=== PATIENT | male | born 1950 | race Caucasian/White ===

== ENCOUNTER → 2017-12-26 | Outpatient (CLI) | payer MEDICARE ==
[~2017-12-26] MED LIST: AMIT25TA PO; CEPH-376 PO; CYCL-259 PO; DIAZ10TA4 PO; DIAZ5TAB PO; ENOX30SY4 SQ; ESZO1TAB8 PO; GLUC15006 PO; HYDR-3237 PO; LACT1TAB3 PO; MULT-224 PO; MULT-516 PO; OXYC10TA72 PO; OXYC5TAB2 PO; SILD100T PO; STOOL SOFTENER PO; ZOLP10TA5 PO
[2017-12-26 08:56] LABS: BASOPHILS # (AUTO) 0.03 x10^3/uL (0-0.1); BASOPHILS % (AUTO) 1 % (0-1); EOSINOPHILS # (AUTO) 0.15 x10^3/uL (0-0.4); EOSINOPHILS % (AUTO) 3 % (1-7); LYMPHOCYTES % (AUTO) 27 % (22-44); MD NO; MEAN CORPUSCULAR HEMOGLOBIN 31.7 pg (27.5-34.5); MEAN CORPUSCULAR HGB CONC 33.6 g/dL (33.2-36.2); MEAN CORPUSCULAR VOLUME 94.3 fL (81-97); MEAN PLATELET VOLUME 7.4 fL (7.4-10.4); MONOCYTES # (AUTO) 0.38 x10^3/uL (0.2-0.8); MONOCYTES % (AUTO) 9 % (2-9); NEUTROPHILS # (AUTO) 2.69 x10^3/uL (1.8-6.8); NEUTROPHILS % (AUTO) 60 % (42-75); PLATELET COUNT 230 x10^3/uL (130-400); RED BLOOD COUNT 4.95 x10^6/uL (4.38-5.82); RED CELL DISTRIBUTION WIDTH 14.2 % (9.4-14.8)
[2017-12-26 08:57] LABS: MICROSCOPIC NOT IND
[2017-12-26 09:01] LABS: CULTURE INDICATED? NO
[2017-12-26 09:07] LABS: ALANINE AMINOTRANSFERASE 28 U/L (12-78); ALBUMIN 3.7 g/dL (3.4-5.0); ANION GAP 6 mmol/L (5-15); CALCIUM 8.5 mg/dL (8.5-10.1); CHLORIDE 108 mmol/L (98-107); CREATININE 0.82 mg/dL (0.7-1.3)
[2017-12-26 09:09] LABS: ALKALINE PHOSPHATASE 53 U/L (45-117); BILIRUBIN,TOTAL 0.4 mg/dL (0.2-1.0); TOTAL PROTEIN 7.5 g/dL (6.4-8.2)
[2017-12-26 09:19] LABS: INTERNATIONAL NORMALIZED RATIO 1.01 (0.93-1.1); PROTHROMBIN TIME 10.5 Seconds (9.6-11.5)
== END | disposition home or self-care (01) ==
LOC: STAR 07:49
PROVIDERS: ATTEND Orthopaedic Surgery Orthopaedic Surgery of the Spine
DX: Z01.818 Encounter for other preprocedural examination (principal); I44.4 Left anterior fascicular block; Z86.718 Personal history of other venous thrombosis and embolism
CPT/HCPCS: 36415; 71046; 80053; 81003; 85025; 85610; 85730; 93005

== ENCOUNTER 2018-01-01 06:32 | Inpatient (IN) | payer MEDICARE ==
[~2018-01-01] VITALS: Ht 180.3 cm; Wt 81.0 kg
[2018-01-01] MEDS ORDERED: LACTATED RINGERS 1,000 ML IV SCH (07:00)
[2018-01-01 07:23] VITALS: BP 127/83
[2018-01-01] MEDS ORDERED: ROCURONIUM 10MG/ML,5ML ONE ×2 (08:07→08:23)
[2018-01-01] MEDS ORDERED: ONDANSETRON 2MG/ML, 2ML ONE (08:07)
[2018-01-01] MEDS ORDERED: DEXAMETHASONE 4 MG/ML, 1ML ONE (08:07)
[2018-01-01] MEDS ORDERED: EPHEDRINE 50 MG/ML, 1ML ONE ×2 (08:07→08:17)
[2018-01-01] MEDS ORDERED: PROPOFOL 10 MG/ML, 20ML ONE ×4 (08:07→08:15)
[2018-01-01] MEDS ORDERED: METOCLOPRAMIDE 5 MG/ML, 2ML ONE (08:07)
[2018-01-01] MEDS ORDERED: CEFAZOLIN 1,000 MG ONE ×2 (08:08)
[2018-01-01] MEDS ORDERED: LIDOCAINE-MPF 2% ,5ML ONE (08:08)
[2018-01-01] MEDS ORDERED: LIDOCAINE GEL 2%, 5ML ONE (08:08)
[2018-01-01] MEDS ORDERED: PHENYLEPHRINE 10 MG/ML ONE (08:08)
[2018-01-01] MEDS ORDERED: WATER-INJECTION,STERILE 10 ML IV ONE (08:12)
[2018-01-01] MEDS ORDERED: GLYCOPYRROLATE 0.2MG/1ML, 5ML ONE (08:23)
[2018-01-01] MEDS ORDERED: NEOSTIGMINE 1 MG/ML, 10ML ONE (08:23)
[2018-01-01] MEDS ORDERED: FENTANYL PF 100 MCG/2ML ONE ×3 (08:25→12:11)
[2018-01-01] MEDS ORDERED: MIDAZOLAM 1 MG/ML, 2ML ONE (08:25)
[2018-01-01] MEDS ORDERED: KETAMINE 10 MG/ML, 20ML ONE (08:32)
[2018-01-01] MEDS ORDERED: REMIFENTANIL 1 MG ONE (08:32)
[2018-01-01] MEDS ORDERED: BUPIVACAINE/PF-EPI 0.5% 1:200K ONE (09:22)
[2018-01-01] MEDS ORDERED: VANCOMYCIN 1,000 MG ONE (10:52)
[2018-01-01] MEDS ORDERED: THROMBIN 5,000 UNIT VIAL TP ONE (10:52)
[2018-01-01] MEDS ORDERED: BUPIVACAINE/PF-EPI 0.25% 1:200K ONE (10:52)
[2018-01-01] MEDS ORDERED: OXYcodone 5 MG/5 ML ORAL.SOL UDC PO PRN (12:00)
[2018-01-01] MEDS ORDERED: MEPERIDINE/PF 25MG/0.5ML IVPush PRN (12:00)
[2018-01-01] MEDS ORDERED: ONDANSETRON 2MG/ML, 2ML IVPush PRN (12:00)
[2018-01-01] MEDS ORDERED: HYDROmorphone 1 MG/ML, 1ML IV PRN (12:00)
[2018-01-01] MEDS ORDERED: LABETALOL 5MG/ML, 20ML IV PRN (12:00)
[2018-01-01] MEDS ORDERED: MIDAZOLAM 1 MG/ML, 2ML IV PRN (12:00)
[2018-01-01] MEDS ORDERED: OXYcodone 5 MG/5 ML ORAL.SOL UDC ONE (12:11)
[2018-01-01] MEDS: FENTANYL PF 100 MCG/2ML IV PRN ×2 (12:14→12:22)
== END 2018-01-01 14:45 | disposition home or self-care (01) | DRG 497 ==
LOC: ORIP 06:32 → EDSTATUS 11:30
PROVIDERS: ADMIT Orthopaedic Surgery Orthopaedic Surgery of the Spine; ATTEND Orthopaedic Surgery Orthopaedic Surgery of the Spine
PROC: 01NB0ZZ Release Lumbar Nerve, Open Approach (ICD-10-PCS; 2018-01-01)
PROC: 0QP004Z Removal of Internal Fixation Device from Lumbar Vertebra, Open Approach (ICD-10-PCS; principal; 2018-01-01 08:30)
DX: T84.9XXA Unspecified complication of internal orthopedic prosthetic device, implant and graft, initial encounter (principal); Y83.8 Other surgical procedures as the cause of abnormal reaction of the patient, or of later complication, without mention of misadventure at the time of the procedure; M54.17 Radiculopathy, lumbosacral region; M48.07 Spinal stenosis, lumbosacral region; G62.9 Polyneuropathy, unspecified; G47.33 Obstructive sleep apnea (adult) (pediatric); G89.29 Other chronic pain; Y92.89 Other specified places as the place of occurrence of the external cause; Z86.711 Personal history of pulmonary embolism
CPT/HCPCS: J0690; J1100; J2250; J2405; J2704; J2710; J3010; J3370; J3490; C1760; J2370; J2765; J7120

== ENCOUNTER 2018-01-31 10:58 | Inpatient (IN) | payer MEDICARE ==
[~2018-01-31] VITALS: Ht 177.8 cm; Wt 84.0 kg
[2018-01-31] MEDS ORDERED: SODIUM CHLORIDE FLUSH 10ML SYR IVF ONE (12:00)
[2018-01-31] MEDS ORDERED: VANCOMYCIN 1,600 MG in SODIUM CHLORIDE 0.9% 250 ML IV ONE (12:00)
[2018-01-31] MEDS ORDERED: AMPICILLIN/SULBACTAM 3 GM in SODIUM CHLORIDE 0.9% 100 ML IVPB ONE (12:00)
[2018-01-31] MEDS ORDERED: VANCOMYCIN PER PHARMACY MC ONE (12:00)
[2018-01-31 12:14] LABS: BASOPHILS # (AUTO) 0.01 x10^3/uL (0-0.1); BASOPHILS % (AUTO) 0 % (0-1); EOSINOPHILS # (AUTO) 0.26 x10^3/uL (0-0.4); EOSINOPHILS % (AUTO) 2 % (1-7); LYMPHOCYTES # (AUTO) 1.17 x10^3/uL (1-3.4); LYMPHOCYTES % (AUTO) 9 % (22-44); MD NO; MEAN CORPUSCULAR HEMOGLOBIN 32.1 pg (27.5-34.5); MEAN CORPUSCULAR HGB CONC 34.6 g/dL (33.2-36.2); MEAN PLATELET VOLUME 7.9 fL (7.4-10.4); MONOCYTES # (AUTO) 0.84 x10^3/uL (0.2-0.8); MONOCYTES % (AUTO) 6 % (2-9); NEUTROPHILS # (AUTO) 11.19 x10^3/uL (1.8-6.8); NEUTROPHILS % (AUTO) 83 % (42-75); PLATELET COUNT 144 x10^3/uL (130-400); RED BLOOD COUNT 4.96 x10^6/uL (4.38-5.82); RED CELL DISTRIBUTION WIDTH 13.8 % (9.4-14.8)
[2018-01-31 12:22] LABS: ALBUMIN 3.7 g/dL (3.4-5.0); ANION GAP 5 mmol/L (5-15); CHLORIDE 102 mmol/L (98-107)
[2018-01-31] MEDS ORDERED: DOCU100C33 PO (12:39)
[2018-01-31] MEDS ORDERED: OXYC-307 PO (12:39)
[2018-01-31] MEDS ORDERED: ACETAMINOPHEN 325 MG TABLET PO PRN (16:00)
[2018-01-31] MEDS ORDERED: BISACODYL 10 MG SUPP PR PRN (16:00)
[2018-01-31] MEDS ORDERED: ENALAPRILAT 1.25 MG/ML, 2ML IVPush PRN (16:00)
[2018-01-31] MEDS ORDERED: ONDANSETRON ODT 4 MG PO PRN (16:00)
[2018-01-31] MEDS ORDERED: HYDROcodone/APAP 5/325 TABLET PO PRN (16:00)
[2018-01-31] MEDS ORDERED: KETOROLAC 30 MG/1 ML IV PRN (16:00)
[2018-01-31] MEDS ORDERED: ESZOPICLONE 1 MG PO PRN (16:00)
[2018-01-31] MEDS ORDERED: CYCLOBENZAPRINE 10 MG TABLET PO PRN (16:00)
[2018-01-31] MEDS ORDERED: LABETALOL 5MG/ML, 20ML IVPush PRN (16:00)
[2018-01-31] MEDS ORDERED: ONDANSETRON 2MG/ML, 2ML IVPush PRN (16:00)
[2018-01-31] MEDS: OXYcodone/APAP 10/325MG TABLET PO SCH ×2 (16:00→21:22)
[2018-01-31] MEDS ORDERED: VANCOMYCIN PER PHARMACY MC PRN (16:30)
[2018-01-31 16:33] VITALS: BP 124/83
[2018-01-31] MEDS ORDERED: PHARMACOKINETIC MONITORING MC PRN (17:00)
[2018-01-31 17:25] VITALS: BP 124/83
[2018-01-31] MEDS: SODIUM CHLORIDE 0.9% 1,000 ML IV SCH (17:37)
[2018-01-31 19:23] VITALS: BP 107/65
[2018-01-31] MEDS: AMITRIPTYLINE 25 MG TABLET PO SCH (21:22)
[2018-01-31] MEDS: AMPICILLIN/SULBACTAM 3 GM in SODIUM CHLORIDE 0.9% 100 ML IV SCH (21:22)
[2018-02-01 01:49] VITALS: BP 105/65
[2018-02-01] MEDS: OXYcodone/APAP 10/325MG TABLET PO SCH ×4 (03:54→22:00)
[2018-02-01] MEDS: AMPICILLIN/SULBACTAM 3 GM in SODIUM CHLORIDE 0.9% 100 ML IV SCH ×4 (03:54→20:45)
[2018-02-01] MEDS: SODIUM CHLORIDE 0.9% 1,000 ML IV SCH ×2 (03:55→22:42)
[2018-02-01 06:17] LABS: BASOPHILS # (AUTO) 0.01 x10^3/uL (0-0.1); BASOPHILS % (AUTO) 0 % (0-1); EOSINOPHILS # (AUTO) 0.37 x10^3/uL (0-0.4); EOSINOPHILS % (AUTO) 4 % (1-7); LYMPHOCYTES # (AUTO) 0.72 x10^3/uL (1-3.4); LYMPHOCYTES % (AUTO) 7 % (22-44); MD NO; MEAN CORPUSCULAR HEMOGLOBIN 32.1 pg (27.5-34.5); MEAN CORPUSCULAR HGB CONC 34.2 g/dL (33.2-36.2); MEAN CORPUSCULAR VOLUME 93.7 fL (81-97); MEAN PLATELET VOLUME 7.8 fL (7.4-10.4); MONOCYTES # (AUTO) 0.71 x10^3/uL (0.2-0.8); MONOCYTES % (AUTO) 7 % (2-9); NEUTROPHILS # (AUTO) 8.16 x10^3/uL (1.8-6.8); NEUTROPHILS % (AUTO) 82 % (42-75); PLATELET COUNT 132 x10^3/uL (130-400); RED BLOOD COUNT 4.38 x10^6/uL (4.38-5.82); RED CELL DISTRIBUTION WIDTH 14.3 % (9.4-14.8)
[2018-02-01 06:18] LABS: ANION GAP 7 mmol/L (5-15); CALCIUM 8.5 mg/dL (8.5-10.1); CHLORIDE 107 mmol/L (98-107)
[2018-02-01 06:20] LABS: CREATININE 1.01 mg/dL (0.7-1.3)
[2018-02-01] MEDS ORDERED: VANCOMYCIN 1,000 MG ONE (07:34)
[2018-02-01] MEDS ORDERED: BUPIVACAINE/PF-EPI 0.5% 1:200K ONE (07:34)
[2018-02-01] MEDS ORDERED: THROMBIN 20,000 UNIT VIAL TP ONE (07:34)
[2018-02-01] MEDS ORDERED: THROMBIN 5,000 UNIT VIAL TP ONE (07:34)
[2018-02-01] MEDS ORDERED: BACITRACIN 50,000 UNIT ONE (07:34)
[2018-02-01] MEDS ORDERED: FENTANYL PF 250 MCG/5ML ONE (07:53)
[2018-02-01] MEDS ORDERED: MIDAZOLAM 1 MG/ML, 2ML ONE (07:53)
[2018-02-01] MEDS ORDERED: ROCURONIUM 10 MG/ML,10ML ONE (08:00)
[2018-02-01] MEDS ORDERED: PROPOFOL 10 MG/ML, 20ML ONE (08:00)
[2018-02-01] MEDS ORDERED: ONDANSETRON 2MG/ML, 2ML ONE (08:00)
[2018-02-01] MEDS ORDERED: SUCCINYLCHOLINE 20 MG/ML, 10ML ONE (08:00)
[2018-02-01] MEDS ORDERED: ONDANSETRON 2MG/ML, 2ML IV PRN (08:30)
[2018-02-01] MEDS ORDERED: ALBUTEROL SULFATE 2.5 MG/3 ML NPPB PRN (08:30)
[2018-02-01] MEDS ORDERED: LORazepam 2 MG/ML, 1ML IVPush PRN (08:30)
[2018-02-01] MEDS ORDERED: ONDANSETRON ODT 8 MG PO PRN (08:30)
[2018-02-01] MEDS ORDERED: EPHEDRINE 50 MG/ML, 1ML IVPush PRN (08:30)
[2018-02-01] MEDS ORDERED: ACETAMINOPHEN 325 MG TABLET PO PRN (08:30)
[2018-02-01] MEDS ORDERED: hydrALAzine 20 MG/ML, 1ML IV PRN (08:30)
[2018-02-01] MEDS ORDERED: MIDAZOLAM 1 MG/ML, 2ML IV PRN (08:30)
[2018-02-01] MEDS ORDERED: PROMETHAZINE 12.5 MG SUPP PR PRN (08:30)
[2018-02-01] MEDS ORDERED: FENTANYL PF 100 MCG/2ML IV PRN (08:30)
[2018-02-01] MEDS ORDERED: HYDROmorphone 1 MG/ML, 1ML IV PRN (08:30)
[2018-02-01] MEDS ORDERED: OXYcodone 5 MG/5 ML ORAL.SOL UDC PO PRN (08:30)
[2018-02-01] MEDS ORDERED: PROMETHAZINE 25 MG/ML, 1ML IV PRN (08:30)
[2018-02-01] MEDS ORDERED: MEPERIDINE/PF 25MG/0.5ML IVPush PRN (08:30)
[2018-02-01] MEDS ORDERED: LABETALOL 5MG/ML, 20ML IV PRN (08:30)
[2018-02-01] MEDS ORDERED: CEFAZOLIN 1,000 MG ONE ×2 (08:37)
[2018-02-01] MEDS ORDERED: KETOROLAC 30 MG/1 ML ONE (08:37)
[2018-02-01] MEDS: DOCUSATE 100 MG CAPSULE PO SCH (09:00)
[2018-02-01] MEDS: MULTIVITAMINS/MINERALS TABLET PO SCH (09:00)
[2018-02-01] MEDS ORDERED: OXYcodone 5 MG/5 ML ORAL.SOL UDC ONE (09:38)
[2018-02-01 10:26] VITALS: BP 134/85
[2018-02-01] MEDS ORDERED: D5%-0.45NACL+KCL 20MEQ 1,000 ML IV SCH (11:00)
[2018-02-01] MEDS: VANCOMYCIN 1,600 MG in SODIUM CHLORIDE 0.9% 250 ML IV SCH ×2 (14:15→15:57)
[2018-02-01 14:30] VITALS: BP 115/71
[2018-02-01] MEDS ORDERED: ZOLPIDEM 5MG TABLET PO PRN (14:30)
[2018-02-01 14:41] LABS: HCT (SEDRATE) 38.1 % (39.2-51.8)
[2018-02-01 20:27] VITALS: BP 129/67
[2018-02-01] MEDS: AMITRIPTYLINE 25 MG TABLET PO SCH (22:37)
[2018-02-01 23:32] VITALS: BP 114/55
[2018-02-02 03:21] VITALS: BP 108/60
[2018-02-02] MEDS: AMPICILLIN/SULBACTAM 3 GM in SODIUM CHLORIDE 0.9% 100 ML IV SCH ×3 (03:23→16:40)
[2018-02-02] MEDS: OXYcodone/APAP 10/325MG TABLET PO SCH ×4 (03:35→21:42)
[2018-02-02 05:13] LABS: ALBUMIN 2.5 g/dL (3.4-5.0); ANION GAP 3 mmol/L (5-15); BASOPHILS # (AUTO) 0.01 x10^3/uL (0-0.1); BASOPHILS % (AUTO) 0 % (0-1); CALCIUM 7.4 mg/dL (8.5-10.1); CHLORIDE 110 mmol/L (98-107); EOSINOPHILS # (AUTO) 0.59 x10^3/uL (0-0.4); EOSINOPHILS % (AUTO) 9 % (1-7); LYMPHOCYTES # (AUTO) 0.77 x10^3/uL (1-3.4); LYMPHOCYTES % (AUTO) 12 % (22-44); MD NO; MEAN CORPUSCULAR HEMOGLOBIN 32.1 pg (27.5-34.5); MEAN CORPUSCULAR HGB CONC 34.3 g/dL (33.2-36.2); MEAN CORPUSCULAR VOLUME 93.8 fL (81-97); MEAN PLATELET VOLUME 7.9 fL (7.4-10.4); MONOCYTES # (AUTO) 0.54 x10^3/uL (0.2-0.8); MONOCYTES % (AUTO) 8 % (2-9); NEUTROPHILS # (AUTO) 4.66 x10^3/uL (1.8-6.8); NEUTROPHILS % (AUTO) 71 % (42-75); PLATELET COUNT 114 x10^3/uL (130-400); RED BLOOD COUNT 3.77 x10^6/uL (4.38-5.82)
[2018-02-02 06:36] VITALS: BP 114/70
[2018-02-02] MEDS: DOCUSATE 100 MG CAPSULE PO SCH (09:29)
[2018-02-02] MEDS: MULTIVITAMINS/MINERALS TABLET PO SCH (09:29)
[2018-02-02 13:38] VITALS: BP 120/76
[2018-02-02] MEDS: SODIUM CHLORIDE 0.9% 1,000 ML IV SCH (16:42)
[2018-02-02] MEDS: VANCOMYCIN 1,600 MG in SODIUM CHLORIDE 0.9% 250 ML IV SCH (18:06)
[2018-02-02 19:31] VITALS: BP 133/80
[2018-02-02] MEDS: AMITRIPTYLINE 25 MG TABLET PO SCH (21:41)
[2018-02-02] MEDS: CEFAZOLIN 2,000 MG in SODIUM CHLORIDE 0.9% 50 ML IVPB SCH (21:41)
[2018-02-03 02:53] VITALS: BP 120/71
[2018-02-03] MEDS: SODIUM CHLORIDE 0.9% 1,000 ML IV SCH ×3 (02:57→21:50)
[2018-02-03] MEDS: OXYcodone/APAP 10/325MG TABLET PO SCH ×4 (03:04→22:00)
[2018-02-03 06:02] LABS: BASOPHILS # (AUTO) 0.01 x10^3/uL (0-0.1); BASOPHILS % (AUTO) 0 % (0-1); EOSINOPHILS % (AUTO) 9 % (1-7); LYMPHOCYTES # (AUTO) 0.85 x10^3/uL (1-3.4); LYMPHOCYTES % (AUTO) 19 % (22-44); MD NO; MEAN CORPUSCULAR HEMOGLOBIN 31.8 pg (27.5-34.5); MEAN CORPUSCULAR HGB CONC 34.2 g/dL (33.2-36.2); MEAN CORPUSCULAR VOLUME 92.9 fL (81-97); MEAN PLATELET VOLUME 7.8 fL (7.4-10.4); MONOCYTES % (AUTO) 9 % (2-9); NEUTROPHILS # (AUTO) 2.93 x10^3/uL (1.8-6.8); NEUTROPHILS % (AUTO) 64 % (42-75); PLATELET COUNT 126 x10^3/uL (130-400); RED BLOOD COUNT 3.78 x10^6/uL (4.38-5.82); RED CELL DISTRIBUTION WIDTH 13.8 % (9.4-14.8)
[2018-02-03] MEDS: CEFAZOLIN 2,000 MG in SODIUM CHLORIDE 0.9% 50 ML IVPB SCH ×3 (06:04→21:50)
[2018-02-03 06:12] LABS: ALBUMIN 2.6 g/dL (3.4-5.0); ANION GAP 5 mmol/L (5-15); CALCIUM 7.6 mg/dL (8.5-10.1); CHLORIDE 111 mmol/L (98-107); CREATININE 0.72 mg/dL (0.7-1.3)
[2018-02-03] MEDS: DOCUSATE 100 MG CAPSULE PO SCH (08:10)
[2018-02-03] MEDS: MULTIVITAMINS/MINERALS TABLET PO SCH (08:10)
[2018-02-03 08:20] VITALS: BP 119/78
[2018-02-03 14:35] VITALS: BP 128/67
[2018-02-03 19:08] VITALS: BP 124/75
[2018-02-03] MEDS: AMITRIPTYLINE 25 MG TABLET PO SCH (21:02)
[2018-02-04 01:57] VITALS: BP 126/76
[2018-02-04] MEDS: OXYcodone/APAP 10/325MG TABLET PO SCH ×4 (03:58→21:40)
[2018-02-04] MEDS: CEFAZOLIN 2,000 MG in SODIUM CHLORIDE 0.9% 50 ML IVPB SCH ×3 (05:31→23:29)
[2018-02-04 06:22] LABS: CHLORIDE 110 mmol/L (98-107)
[2018-02-04 06:28] LABS: ALBUMIN 2.7 g/dL (3.4-5.0); ANION GAP 6 mmol/L (5-15); CREATININE 0.81 mg/dL (0.7-1.3)
[2018-02-04 07:50] VITALS: BP 128/76
[2018-02-04] MEDS: DOCUSATE 100 MG CAPSULE PO SCH (08:45)
[2018-02-04] MEDS: SODIUM CHLORIDE 0.9% 1,000 ML IV SCH (08:45)
[2018-02-04] MEDS: MULTIVITAMINS/MINERALS TABLET PO SCH (08:45)
[2018-02-04 13:04] VITALS: BP 144/80
[2018-02-04 21:07] VITALS: BP 150/86
[2018-02-04] MEDS: AMITRIPTYLINE 25 MG TABLET PO SCH (21:35)
[2018-02-05 01:51] VITALS: BP 132/72
[2018-02-05] MEDS: SODIUM CHLORIDE 0.9% 1,000 ML IV SCH (01:54)
[2018-02-05] MEDS: OXYcodone/APAP 10/325MG TABLET PO SCH ×4 (04:00→22:00)
[2018-02-05 05:27] LABS: ALBUMIN 2.6 g/dL (3.4-5.0); ANION GAP 6 mmol/L (5-15); CALCIUM 7.7 mg/dL (8.5-10.1); CHLORIDE 111 mmol/L (98-107); CREATININE 0.68 mg/dL (0.7-1.3)
[2018-02-05] MEDS ORDERED: POTASSIUM CHLORIDE 20 MEQ TAB.ER.PRT PO ONE (06:30)
[2018-02-05] MEDS: CEFAZOLIN 2,000 MG in SODIUM CHLORIDE 0.9% 50 ML IVPB SCH (07:00)
[2018-02-05 07:06] VITALS: BP 136/84
[2018-02-05] MEDS: ERTAPENEM 1 GM in SODIUM CHLORIDE 0.9% 50 ML IV SCH (09:13)
[2018-02-05] MEDS: DOCUSATE 100 MG CAPSULE PO SCH (09:14)
[2018-02-05] MEDS: MULTIVITAMINS/MINERALS TABLET PO SCH (09:14)
[2018-02-05 12:50] VITALS: BP 149/89
[2018-02-05 18:47] VITALS: BP 129/82
[2018-02-05] MEDS: AMITRIPTYLINE 25 MG TABLET PO SCH (21:13)
[2018-02-06 03:55] VITALS: BP 128/73
[2018-02-06] MEDS: OXYcodone/APAP 10/325MG TABLET PO SCH ×2 (04:00→09:58)
[2018-02-06 05:47] LABS: BASOPHILS # (AUTO) 0.03 x10^3/uL (0-0.1); BASOPHILS % (AUTO) 1 % (0-1); EOSINOPHILS # (AUTO) 0.35 x10^3/uL (0-0.4); EOSINOPHILS % (AUTO) 5 % (1-7); LYMPHOCYTES # (AUTO) 1.17 x10^3/uL (1-3.4); LYMPHOCYTES % (AUTO) 18 % (22-44); MD NO; MEAN CORPUSCULAR HEMOGLOBIN 31.5 pg (27.5-34.5); MEAN CORPUSCULAR HGB CONC 34.1 g/dL (33.2-36.2); MEAN CORPUSCULAR VOLUME 92.3 fL (81-97); MEAN PLATELET VOLUME 7.3 fL (7.4-10.4); MONOCYTES % (AUTO) 8 % (2-9); NEUTROPHILS # (AUTO) 4.49 x10^3/uL (1.8-6.8); NEUTROPHILS % (AUTO) 69 % (42-75); PLATELET COUNT 202 x10^3/uL (130-400); RED CELL DISTRIBUTION WIDTH 13.9 % (9.4-14.8)
[2018-02-06 05:54] LABS: ALBUMIN 2.9 g/dL (3.4-5.0); ANION GAP 6 mmol/L (5-15); CALCIUM 8.2 mg/dL (8.5-10.1); CHLORIDE 109 mmol/L (98-107); CREATININE 0.72 mg/dL (0.7-1.3)
[2018-02-06 08:04] VITALS: BP 132/83
[2018-02-06] MEDS: ERTAPENEM 1 GM in SODIUM CHLORIDE 0.9% 50 ML IV SCH (09:57)
[2018-02-06] MEDS: MULTIVITAMINS/MINERALS TABLET PO SCH (09:57)
[2018-02-06] MEDS: DOCUSATE 100 MG CAPSULE PO SCH (09:57)
== END 2018-02-06 14:00 | disposition home or self-care (01) | DRG 856 ==
LOC: ED 15:05 → EDIP 15:53 → 3NE 16:30 → DCLOUNGE 02-06 13:48
PROVIDERS: ADMIT Hospitalist; ATTEND Hospitalist
PROC: 5A09357 Assistance with Respiratory Ventilation, Less than 24 Consecutive Hours, Continuous Positive Airway Pressure (ICD-10-PCS; 2018-02-01)
PROC: 0JB70ZZ Excision of Back Subcutaneous Tissue and Fascia, Open Approach (ICD-10-PCS; principal; 2018-02-01 08:00)
PROC: 02HV33Z Insertion of Infusion Device into Superior Vena Cava, Percutaneous Approach (ICD-10-PCS; 2018-02-04)
PROC: B5181ZA Fluoroscopy of Superior Vena Cava using Low Osmolar Contrast, Guidance (ICD-10-PCS; 2018-02-04)
DX: T81.4XXA Infection following a procedure, initial encounter (principal); G06.1 Intraspinal abscess and granuloma; L03.312 Cellulitis of back [any part except buttock and flank]; E87.1 Hypo-osmolality and hyponatremia; Y83.8 Other surgical procedures as the cause of abnormal reaction of the patient, or of later complication, without mention of misadventure at the time of the procedure; Y92.89 Other specified places as the place of occurrence of the external cause; G47.00 Insomnia, unspecified; F12.90 Cannabis use, unspecified, uncomplicated; F17.210 Nicotine dependence, cigarettes, uncomplicated; G47.30 Sleep apnea, unspecified; G89.29 Other chronic pain; K58.9 Irritable bowel syndrome, unspecified; M21.372 Foot drop, left foot; Z86.711 Personal history of pulmonary embolism; Z98.1 Arthrodesis status
CPT/HCPCS: 36415; 36569; 72132; 76937; 77001; 80048; 80202; 82040; 85025; 85651; 86140; 87040; 87070; 87075; 87077; 87147; 87186; 87205; 94762; 96365; 96366; 96368; 99285; G0378; J0295; J0690; J1335; J1885; J2250; J2270; J2405; J2704; J3010; J3370; C1751; J0330; J7030; J7050